=== PATIENT | female | born 1945 | race Caucasian/White ===

== ENCOUNTER 2016-12-28 07:10 | Day surgery (SDC) | payer OTHER ==
--- NOTE | ~2016-12-28 | EGD ---
EGD REPORT [facility] [address] [id number] NAME: CHRISTINE CALABRESE : [birth year] STATUS : REG [facility] PAT#: [id number] AGE: 71 ADM/REG DATE : 12/28/16 MR#: [id number] REPORT SERV DATE: 12/28/16 DICTATED BY: DATE: REPORT STATUS : Draft TRANSCRIBED BY: [employer] DATE: 12/28/16 [facility] Patient Name: Christine Calabrese Date of : 1945 Attending MD: SEB CHAVEZ MD Procedure Date No Time: 12/28/2016 Procedure: Colonoscopy Indications: High risk colon CA surveillance: Personal history multiple (3 or more) adenomas Referring MD: LAVINIA STANLEY JR. Medicines: Monitored Anesthesia Care Complications: No immediate complications. Procedure: Pre-Anesthesia Assessment: - ASA Grade Assessment: IV - A patient with severe systemic disease that is a constant threat to life. After I obtained informed consent, the scope was passed under direct vision. Throughout the procedure, the patient's blood pressure, pulse, and oxygen saturations were monitored continuously. The PCF [id number] was introduced through the anus and advanced to the cecum, identified by appendiceal orifice and ileocecal valve. The colonoscopy was performed without difficulty. The patient tolerated the procedure well. The quality of the bowel preparation was good. Findings: The perianal and digital rectal examinations were normal. Multiple small and large-mouthed diverticula were found in the entire colon. A single small-mouthed diverticulum was found in the sigmoid colon. Purulent discharge was seen in association with the diverticular opening, consistent with diverticulitis. A sessile polyp was found at the hepatic flexure. The polyp was small in size. The polyp was removed with a cold snare. Resection and retrieval were complete. A single angioectasia was found in the cecum. No other significant abnormalities were identified in a careful examination of the remainder of the colon. There is no endoscopic evidence of inflammation, mass or ulcerations in the entire colon. Internal hemorrhoids were found during retroflexion and were Grade I (internal hemorrhoids that do not prolapse). Anal papilla(e) were hypertrophied. No additional abnormalities were found on retroflexion. EGD REPORT [address] [place]. [address] NAME: CHRISTINE CALABRESE : [birth year] STATUS : REG [facility] PAT#: [id number] AGE: 71 ADM/REG DATE : 12/28/16 MR#: [id number] REPORT SERV DATE: 12/28/16 DICTATED BY: DATE: REPORT STATUS : Draft TRANSCRIBED BY: [employer] DATE: 12/28/16 Impression: - Diverticulosis in the entire examined colon. - Diverticulosis in the sigmoid colon. Purulent discharge was seen in association with the diverticular opening, indicative of diverticulitis. - One small polyp at the hepatic flexure. Resected and retrieved. - A single colonic angioectasia. - Internal hemorrhoids. - Anal papilla(e) were hypertrophied. Recommendation: - Patient has a contact number available for emergencies. The signs and symptoms of potential delayed complications were discussed with the patient. Return to normal activities tomorrow. Written discharge instructions were provided to the patient. - Regular diet. - Discharge patient to home. - Continue present medications. - Await pathology results. - Cipro \T\ Flagyl sent to [facility]. Please start today and take for 7 days. - Repeat colonoscopy in 5 years for surveillance. Procedure Code(s): --- Professional --- 04759, Colonoscopy, flexible, proximal to splenic flexure; with removal of tumor(s), polyp(s), or other lesion(s) by snare technique Diagnosis Code(s): --- Professional --- K64.0, First degree hemorrhoids K57.32, Diverticulitis of large intestine without perforation or abscess without bleeding D12.3, Benign neoplasm of transverse colon K55.20, Angiodysplasia of colon without hemorrhage K62.89, Other specified diseases of anus and rectum Z86.010, Personal history of colonic polyps CPT copyright 2013 [employer]. All rights reserved. The codes documented in this report are preliminary and upon insulation foreman review may be revised to meet current compliance requirements. SEB CHAVEZ MD 12/28/2016 9:15 AM This report has been signed electronically. EGD REPORT [facility] [address] [id number] NAME: CHRISTINE CALABRESE : [birth year] STATUS : REG [facility] PAT#: [id number] AGE: 71 ADM/REG DATE : 12/28/16 MR#: [id number] REPORT SERV DATE: 12/28/16 DICTATED BY: DATE: REPORT STATUS : Draft TRANSCRIBED BY: [employer] DATE: 12/28/16 Number of Addenda: 0 Note Initiated On: 12/28/2016 8:27 AM Scope Withdrawal Time 0 hours 11 minutes 37 seconds [address] [id number]
[~2016-12-28 07:10] MED LIST: ACCUNE1 INH; ADVAIR250 INH; ALB4 PO; AMARYL2 PO; AMB10 PO; AMITIZA8 MCG PO; ASAB PO; ATEN25 PO; BROVANA15 MCG INH; CARTIA XT120 MG/24 PO; DEMA10T PO; DILT-XR240 MG PO; GLUCOPHAGE1000 MG PO; LINZESS 290 M290 MCG PO; LORT7 PO; MACROBID PO; MICRO-K10 MEQ PO; NEUR300 PO; P10 PO; P5 PO; PROAIR HFA INH; PROBIOTIC; PROVHFA INH; SYMBICORT 160/41 INH INH; ULTRAM50 PO; V5 PO; VALIUM10 MG PO; ZESTORETIC1 TAB PO; [UNRECOGNIZED DRUG - OTHER] PO
== END 2016-12-28 23:59 | disposition home health service (06) ==
LOC: DMU 07:10
PROVIDERS: Internal Medicine Gastroenterology
PROC: 0DBK8ZZ Excision of Ascending Colon, Via Natural or Artificial Opening Endoscopic (ICD-10-PCS; principal; 2016-12-28 08:30)
DX: Z12.11 Encounter for screening for malignant neoplasm of colon (principal); K63.5 Polyp of colon; K64.0 First degree hemorrhoids; K57.30 Diverticulosis of large intestine without perforation or abscess without bleeding; K55.20 Angiodysplasia of colon without hemorrhage; F41.9 Anxiety disorder, unspecified; I10 Essential (primary) hypertension; J45.909 Unspecified asthma, uncomplicated; E11.9 Type 2 diabetes mellitus without complications; J44.9 Chronic obstructive pulmonary disease, unspecified; F32.9 Major depressive disorder, single episode, unspecified; M19.90 Unspecified osteoarthritis, unspecified site; Z86.010 Personal history of colon polyps; Z91.040 Latex allergy status; Z88.8 Allergy status to other drugs, medicaments and biological substances; Z90.710 Acquired absence of both cervix and uterus; Z87.891 Personal history of nicotine dependence; Z98.890 Other specified postprocedural states
CPT/HCPCS: 82962; 88305